=== PATIENT | female | born 1995 | race African-American/Black ===

== ENCOUNTER → 2020-10-25 | Outpatient (CLI) | payer OTHER ==
--- NOTE | 2020-10-25 17:26 | RAD ---
EXAM: Lumbar spine, 2 views. HISTORY: Pain. COMPARISON: None. FINDINGS: 2 views of the lumbar spine are obtained. There is lumbar levocurvature. There is no listhesis. The vertebral bodies are normal in height and the disc spaces are preserved. There are cholecystomy clips. IMPRESSION: No acute osseous finding. Electronically signed by: Nabila Amador MD (10/25/2020 5:24 PM) [facility]
== END ==
LOC: RAD 11:54
PROVIDERS: ATTEND Family Medicine
DX: M43.8X6 Other specified deforming dorsopathies, lumbar region (principal)
CPT/HCPCS: 72100